=== PATIENT | female | born 1995 | race Caucasian/White ===

== ENCOUNTER 2018-06-20 13:02 | Emergency (ER) | payer OTHER ==
[~2018-06-20] VITALS: Ht 157.5 cm; Wt 57.6 kg
[2018-06-20 14:26] VITALS: BP 126/71
--- NOTE | 2018-06-20 14:30 | NUR ---
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 UNABLE TO MOVE L THUMB/FINGERS. DATE OF LAST TETANUS UNKNOWN. PAIN 12/27 AT THIS TIME.
[2018-06-20] MEDS ORDERED: LIDOCAINE 1% 500 MG/50 ML VIAL INJ SCH (14:35)
[2018-06-20] MEDS ORDERED: KETOROLAC 30 MG/ML VIAL IM ONE (14:35)
[2018-06-20] MEDS ORDERED: LIDOCAINE MPF 1% 5mL VIAL ONE (14:56)
--- NOTE | 2018-06-20 15:40 | NUR ---
PA WANDY AT BEDSIDE.
[2018-06-20 16:13] VITALS: BP 124/64
--- NOTE | 2018-06-20 16:13 | NUR ---
Patient discharged with v/s stable. Written and verbal after care instructions given and explained. Patient alert, oriented and verbalized understanding of instructions. Ambulatory with steady gait. All questions addressed prior to discharge. ID band removed. Patient advised to follow up with PMD. Rx of BACITRACIN, IBUPROFEN, ACETAMINOPHEN, KEFLEX given. Patient educated on indication of medication including possible reaction and side effects. Opportunity to ask questions provided and answered.
== END 2018-06-20 16:13 | disposition home or self-care (01) ==
LOC: MED 13:02
DX: S61.412A Laceration without foreign body of left hand, initial encounter (principal); W27.8XXA Contact with other nonpowered hand tool, initial encounter; Y93.89 Activity, other specified; Y92.89 Other specified places as the place of occurrence of the external cause; Y99.0 Civilian activity done for income or pay
CPT/HCPCS: 12004; 73130; 90471; 90715; 96372; 99283; J1885; J2001; Q0092

== ENCOUNTER 2018-06-24 11:52 | Emergency (ER) | payer OTHER ==
[~2018-06-24] VITALS: Ht 157.5 cm; Wt 58.6 kg
[2018-06-24 12:20] VITALS: BP 106/67
--- NOTE | 2018-06-24 12:25 | NUR ---
BIB SELF FOR RECHECK LACERATION ON LT THUMB BASE. WOUND INTACT WITH C/O 8/10 PAIN. UNABLE TO FULLY CLOSE HER LT FIST S/P SEEN LAST WEDNESDAY FOR LACERATION HX; DENIES RX; DENIES
[2018-06-24 12:54] VITALS: BP 106/67
--- NOTE | 2018-06-24 12:55 | NUR ---
Patient discharged with v/s stable. Written and verbal after care instructions given and explained. Patient verbalized understanding. Ambulatory with steady gait. All questions addressed prior to discharge. Advised to return next week for sutures removal.
== END 2018-06-24 12:55 | disposition home or self-care (01) ==
LOC: MED 11:52
DX: S61.012D Laceration without foreign body of left thumb without damage to nail, subsequent encounter (principal); X58.XXXD Exposure to other specified factors, subsequent encounter
CPT/HCPCS: 99281

== ENCOUNTER 2021-08-27 13:49 | Emergency (ER) | payer SELFPAY ==
[~2021-08-27] VITALS: Ht 157.5 cm; Wt 64.4 kg
[2021-08-27 13:58] VITALS: BP 116/62
--- NOTE | 2021-08-27 13:58 | NUR ---
PT TRANSFERED TO BED 6 BY [facility] BY [facility]BULANCE
--- NOTE | 2021-08-27 14:00 | NUR ---
26 Y/O FEMALE BIBA FROM HOME S/P SUDDEN ONSET LOW BACK PAIN S/P TWISTING. PT STATES SHE IS NOT ABLE TO TURN OR MOVE W/O BACK PAIN. PAIN IS RATED 10/10. 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 THEREFORE AMBULACE HAD TO BE CALLED. PT DENIES TRAUMA. PT IS ALERT AND ORIENTED X4. LUNG SOUNDS CTA. VSS. BED LOCKED IN LOWEST POSITION. BED RAILX1. DENIES PMH NKA
[2021-08-27] MEDS ORDERED: GABAPENTIN 300 MG CAP PO ONE (14:35)
[2021-08-27] MEDS ORDERED: KETOROLAC 60 MG/2 ML VIAL IM ONE (14:35)
[2021-08-27] MEDS ORDERED: CYCLOBENZAPRINE 10 MG TAB PO ONE (14:35)
[2021-08-27] MEDS ORDERED: ACET-10509 PO (14:40)
[2021-08-27] MEDS ORDERED: LID5T TP (14:40)
[2021-08-27] MEDS ORDERED: CYCL-711 PO (14:40)
[2021-08-27] MEDS ORDERED: IBUP-2213 PO (14:40)
--- NOTE | 2021-08-27 15:01 | NUR ---
PT RESTING IN NO APPARENT DISTRESS, BREATHING EVEN AND UNLABORED. VITAL SIGNS STABLE WILL CONTINUE TO MONITOR.
[2021-08-27 15:52] VITALS: BP 116/62
--- NOTE | 2021-08-27 15:53 | NUR ---
Patient discharged with v/s stable. Written and verbal after care instructions given and explained. Patient alert, oriented and verbalized understanding of instructions. Ambulatory with steady gait. All questions addressed prior to discharge. ID band removed. Patient advised to follow up with PMD. Rx of TYLENOL EXTRA STRENGTH, CYCLOBENZAPROINE, IBUPROFEN, LIDODERM PATCH given. Patient educated on indication of medication including possible reaction and side effects. Opportunity to ask questions provided and answered.
== END 2021-08-27 15:52 | disposition home or self-care (01) ==
LOC: MED 13:49
DX: S39.012A Strain of muscle, fascia and tendon of lower back, initial encounter (principal); Z79.899 Other long term (current) drug therapy; Z79.1 Long term (current) use of non-steroidal anti-inflammatories (NSAID); X58.XXXA Exposure to other specified factors, initial encounter; Y92.89 Other specified places as the place of occurrence of the external cause; Y93.89 Activity, other specified; Y99.0 Civilian activity done for income or pay
CPT/HCPCS: 96372; 99283; J1885